=== PATIENT | male | born 2000 ===

== ENCOUNTER 2025-05-13 16:11 | Emergency (ER) | payer BC | END 2025-05-13 17:16 | disposition home or self-care (01) | LOC: MW.ED 16:11 | DX: S61.011A Laceration without foreign body of right thumb without damage to nail, initial encounter (principal); Z79.899 Other long term (current) drug therapy; X58.XXXA Exposure to other specified factors, initial encounter; Y93.89 Activity, other specified | CPT/HCPCS: 12001; 99282; 99283 ==